=== PATIENT | female | born 1950 | race Caucasian/White ===

== ENCOUNTER 2023-04-25 10:15 | Observation (INO) ==
--- NOTE | 2023-04-17 14:50 | PAT Medication Instructions ---
Medication Instructions Date of Service April 17, 2023 Home Medications acidophilus 100 million cell-pectin, citrus 10 mg capsule (Probiotic Acidophilus-Pectin) 1 cap PO QAM aspirin 325 mg tablet 325 mg PO QAM calcium carbonate 500 mg calcium (1,250 mg) tablet (Oyster Shell Calcium 500) 500 mg PO QAM diltiazem HCl 240 mg capsule,extended release 24 hr 240 mg PO QAM ibuprofen 200 mg tablet (Advil) 800 mg PO Q6H PRN thyroid (pork) 120 mg tablet ([place] Thyroid) 120 mg PO QAM valsartan 80 mg tablet 80 mg PO QAM vit C 250 mg-vit E 90 mg-zinc 40 mg-copper 1 sd-ffdtio-rscres capsule (PreserVision AREDS-2) 1 tab PO BID ASK your surgeon for instructions ibuprofen 200 mg tablet (Advil) 800 mg PO Q6H PRN ASK your prescriber and surgeon aspirin 325 mg tablet 325 mg PO QAM STOP taking 2 weeks before surgery (or as soon as possible if surgery is within 2 weeks) vit C 250 mg-vit E 90 mg-zinc 40 mg-copper 1 [id number]-dxrqcx-cizxtq capsule (PreserVision AREDS-2) 1 tab PO BID DO NOT take the morning of surgery acidophilus 100 million cell-pectin, citrus 10 mg capsule (Probiotic Acidophilus-Pectin) 1 cap PO QAM calcium carbonate 500 mg calcium (1,250 mg) tablet (Oyster Shell Calcium 500) 500 mg PO QAM valsartan 80 mg tablet 80 mg PO QAM Take morning of surgery With a small sip of water, OTHERWISE NOTHING TO EAT OR DRINK AFTER MIDNIGHT: diltiazem HCl 240 mg capsule,extended release 24 hr 240 mg PO QAM thyroid (pork) 120 mg tablet ([place] Thyroid) 120 mg PO QAM Other Notes If you have any questions please call us at [phone] or [phone] or [phone] or [phone]
--- NOTE | 2023-04-19 10:26 | Anesthesiology Consultation ---
Date of Service April 19, 2023 Assessment & Plan (1) Encounter for pre-operative examination: - Infectious disease screening: Per assessment on 04/19/23: No known infectious disease contacts or current infectious disease symptoms. No noted recent Covid positive test result. - Outpatient joint assessment: Pt currently scheduled for inpatient pathway. If surgeon requests review for outpatient joint pathway, patient is an acceptable candidate for outpatient joint program from anesthesia standpoint pending surgeon's office assessment that patient is motivated, has good support and completes [facility] Program preop requirements. - S/P Right TKA (10/10/17): SAB at L3 (x1 attempt) + regional at [facility] - Preop EKG: performed 04/19/23 notes SR with PACs at 66bpm. LAD. NS intra- ventricular conduction block, Minimal voltage criteria for LVH, may be normal variant ([place] product). Cannot r/o anterior infarct, age undetermined. > Per computer interpretation, compared to 03/29/2016, PACs now present. Known hx of LBBB. Echo 10/2020- unremarkable. As of review 04/21/23, EKG still unconfirmed- anesthesiologist to review confirmed preop EKG DOS. Chart Review Chart Review: Acceptable Risk for Surgery (pending evaluation DOS) and Patient seen in Pre Admission Testing Teaching & Discussion Pre-Anesthesia Teaching/Discussion Notes: Instructed NPO after midnight before surgery,except medications with 15 cc of water. Medication instructions provided according to the PAT guidelines. History Surgery Operation Date: 04/25/23 12:30 Proposed Procedures p Left Total Knee Arthroplasty - Jayy Ley MD Height/Weight Height: 5 ft 7 in Weight: 88 kg Allergies Allergy/AdvReac Type Severity Reaction Status Date / Time No Known Allergies Allergy Verified 04/17/23 13:40 Medications Home Medications Medication Instructions Recorded Confirmed Last Taken acidophilus 100 million 1 cap PO QAM 04/17/23 04/17/23 Unknown cell-pectin, citrus 10 mg capsule (Probiotic Acidophilus-Pectin) aspirin 325 mg tablet 325 mg PO QAM 04/17/23 04/17/23 Unknown calcium carbonate 500 mg calcium 500 mg PO QAM 04/17/23 04/17/23 Unknown (1,250 mg) tablet (Oyster Shell Calcium 500) diltiazem HCl 240 mg 240 mg PO QAM 04/17/23 04/17/23 Unknown capsule,extended release 24 hr ibuprofen 200 mg tablet (Advil) 800 mg PO Q6H PRN Pain 04/17/23 04/17/23 Unknown thyroid (pork) 120 mg tablet 120 mg PO QAM 04/17/23 04/17/23 Unknown ([place] Thyroid) valsartan 80 mg tablet 80 mg PO QAM 04/17/23 04/17/23 Unknown vit C 250 mg-vit E 90 mg-zinc 40 1 tab PO BID 04/17/23 04/17/23 Unknown mg-copper 1 [id number]-thsfsj capsule (PreserVision AREDS-2) Past Medical History Medical History History of shingles 2019, residual left facial neuropathic pain Hard of hearing Left sided Osteoarthritis Macular degeneration Hypertension Left bundle branch block (LBBB) Dating back to at least 2016 ECG/stress test, subsequent Echo 10/2020 Left knee DJD Exercise / Class Metabolic Activity III < 4 Walking/Shop/Light housework Past Family History Family History Other No family history of adverse response to anesthesia Past Surgical History Surgical History History of bilateral tubal ligation History of wisdom tooth extraction History of thyroidectomy, 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 Past Anesthesia History No Hx of Anesthesia Complications and No Family Hx of Anesthesia Complications History of PONV No Hx of PONV and No Hx of Motion Sickness Social History Smoking Status: Former smoker Do You Dip or Chew Tobacco: No Smoking End Date: Quit 2019 Hx Alcohol Use: No Hx Substance Use: No substance use type: does not use Review of Systems Patient denies chest pain, shortness of breath, fever, chills, cough, wheezing, palpitations. Physical Exam Vital Signs VITALS BP 136/72 P 74 TEMP 98.0 SP02 96%RA RESP 18 PHYSICAL Decreased cervical extension range of motion. Full TMJ range of motion. TMD 3 finger breaths Mallampati Score 2 Dentition: intact Lungs: very mild lung bases crackles Cardiac: regular rate and rhythm, no murmurs noted Spine: normal Carotid arteries: negative bruit Extremities: no LE edema, left knee minimal scratch (no erythema, warmth, tenderness- advised to monitor and contact surgeon if not healed/any signs of infection prior to surgery- Catherine at surgeon's office made aware) Lab Results Anesthesia Preop Results Results Anesthesia Widget: WBC 5.83 K/ul (4.8-10.8) 04/19/23 Hgb 13.4 g/dl (12.0-16.0) 04/19/23 Hct 43.1 % (37.0-47.0) 04/19/23 Plt 275 K/uL (130-400) 04/19/23 Na 138 mmol/L (136-145) 04/19/23 K 4.4 mmol/L (3.5-5.1) 04/19/23 Cl 102 mmol/L (98-107) 04/19/23 CO2 28 mmol/L (21-32) 04/19/23 BUN 14 mg/dl (6-23) 04/19/23 Creat 0.97 mg/dl (0.6-1.2) 04/19/23 Glucose Level 87 mg/dl (70-99(Fasting)) 04/19/23 PT 11.2 Seconds (9.0-12.0) 04/19/23 PTT 24 Seconds (21-31) 04/19/23 INR 1.0 (0.9-1.1) 04/19/23 Blood Type B Positive 04/19/23 Antibody Screen NEGATIVE 04/19/23 Testing Electrocardiogram Date: 04/19/23 SR with PACs at 66bpm. LAD. NS intra-ventricular conduction block, Minimal voltage criteria for LVH, may be normal variant ([place] product). Cannot r/o anterior infarct, age undetermined. Per computer interpretation, compared to 03/29/2016, PACs now present. unconfirmed report. Echo done 10/2020 was unremarkable. Chest X-Ray Date: 04/19/23 FINDINGS: No pneumothorax. No pleural effusions. Old, healed left-sided rib fracture. The lungs are clear. There are calcifications within the aortic knob. A pectus excavatum deformity is again noted. This likely accounts for the prominence of the cardiac silhouette. No evidence for pulmonary edema. IMPRESSION: No acute process. Echocardiogram Date: 11/25/20 LVEF 55-59%. Mild concentric remodeling of the LV. There is normal wall motion of RV. No significant valvular disease.
[~2023-04-25 10:15] MED LIST: ACETAMINOPHEN 500 MG TAB PO SCH; BUPIVACAINE LIPOSOME/PF 266 MG, BUPIVACAINE/EPINEPHRINE 50 ML, SODIUM CHLORIDE 0.9% PF ... INFIL SCH; CeleBREX 200 MG CAP PO SCH; FAMOTIDINE 20 MG TAB PO SCH; LR 500ML BOLUS, THEN 15ML/HR IV SCH; LR 60ML/HR IV SCH; METOCLOPRAMIDE HCL 10 MG TABLET PO SCH; ROPIVACAINE 0.5% 5 MG/ML 30 ML VIAL ONE; Scopolamine 1 MG TDSY TD SCH; TRANEXAMIC ACID 1,000 MG **IV Intra-op IV SCH; ceFAZolin 2000MG 2,000 MG/15 ML SYR IV SCH; dexAMETHasone**PF** 10 MG/ML VIAL IV SCH
--- NOTE | 2023-04-25 10:35 | History & Physical Bridge Note ---
Date of Service April 25, 2023 History & Physical Bridge Note I have examined the patient, reviewed the History & Physical and in the interval since the performance of the History & Physical I have noted the following changes of clinical significance: no changes noted
[2023-04-25] MEDS ORDERED: ONDANSETRON INJ 2 MG/ML 2 ML VIAL IV PRN ×2 (11:19→15:56)
[2023-04-25] MEDS ORDERED: ePHEDrine sulfate 50 MG/ML AMP IV PRN (11:19)
[2023-04-25] MEDS ORDERED: ATROPINE SULFATE 0.1 MG/ML 10ML SYR IV PRN (11:19)
[2023-04-25] MEDS ORDERED: HYDROmorphone INJ 1 MG/ML SYRINGE IV PRN (11:19)
[2023-04-25] MEDS ORDERED: MIDAZOLAM HCL 1 MG/ML 2ML VIAL ONE (12:00)
[2023-04-25] MEDS ORDERED: BUPIVACAINE/EPINEPHRINE 0.25% 1:200,000 30 ML VIAL ONE (13:00)
[2023-04-25] MEDS ORDERED: SODIUM CHLORIDE 0.9% PF 50 ML VIAL ONE (13:00)
[2023-04-25] MEDS ORDERED: BUPIVACAINE LIPOSOME 1.3% 266 MG/20 ML VIAL ONE (13:01)
[2023-04-25] MEDS ORDERED: PROPOFOL IV EMULSION 10 MG/ML 20 ML VIAL IV ONE (13:16)
--- NOTE | 2023-04-25 14:43 | Operative Report ---
PG Post Operative Report Pre & Post Diagnosis Operation Date: 04/25/23 12:30 Pre-Op Diagnosis: Left Knee Degenerative Joint Disease Post-Op Diagnosis: Left Knee Degenerative Joint Disease I identified the patient and participated in the time-out.: Yes Procedure Operation Date: 04/25/23 12:30 Actual Procedures p Left Total Knee Arthroplasty(Left) - Jayy Ley MD Surgeon Jayy Ley MD Surveillance Officer Reyes Rodriguez PA-C Estimated Blood Loss 50 Findings Consistent with Post-Op Diagnosis Operative findings were advanced left knee DJD. She had extensive grade 4 htyj-mi-fjvj disease of the medial femoral condyle medial tibial plateau. Less severe changes elsewhere. Diffuse osteopenia. Osteophytes primarily posteriorly and medially. 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 She had a right knee replaced about 5 and half years ago and done well with this. She developed progressive pain and discomfort deformity to her left knee over the years. She failed conservative measures. She elects proceed with left total knee arthroplasty. Description of Procedure Operative implants consist of: 1 Biomet Vanguard size 65 left posterior stabilized femoral component. 2. Biomet size 67 tibial tray. 3. 12 mm posterior stabilized polyethylene insert. 4. 31 x 8 all poly patella. The patient was taken to the operating, identified, placed on the operating table in the supine position but all contact areas were properly padded. IV antibiotics tried by anesthesia team. Spinal anesthetic and adductor canal block had been divided in the holding area. A Jones catheter was placed in sterile fashion. A left thigh tent was then placed in the left lower extremities then prepped and draped in usual sterile fashion. The left leg was elevated exsanguinated with use of an Esmarch and tourniquet placed at 3 mmHg. An anterior approach the left knee was then performed through a longitudinal incision centered over the patella. Sharp dissection was carried through subcutaneous tissue down the extensor mechanism. A medial parapatellar arthrotomy incision was made. Some subperiosteal dissection was carried out medially. Fat pad was dissected from Neath patella tendon. The lateral patellofemoral ligament was released. Patella subluxated laterally knee was flexed. The osteophytes were taken off distal femur. The ACL and PCL were then released from the distal femur the tibia subluxated anteriorly. The external tibial alignment jig was then placed in the anterior face of the tibia and adjusted 14 mm medially. Proximal tibial cut was made remove about a millimeter bone from the medial side. Some osteophytes taken off medial and posterior medially. Tibia was then sized to a size 67. Attention drawn the femur. The distal femur examined the sharp drop with intramedullary canal was suction. A left 5 degree valgus cutting guide was placed. Distal femoral cutting block was pinned in place. This femoral cut was made to take an additional 3 mm of bone off distal femur. The femur was then sized to a size 65. We did downsize this almost an entire size. The AP cutting block was pinned parallel to the epicondylar axis which was 5 degrees of external rotation. The anterior cut, anterior chamfer, posterior cut, posterior chamfer cuts were made. The box cutting guide was placed in the just slight lateral and the box cut was made. The knee was flexed. The remnants of the medial and lateral menisci were excised. The osteophytes taken off the posterior aspect the femur. A trial femoral component was placed. The tibial tray was pinned in maximum external rotation and the drill and stem punch were used to create defect in proximal tibia for the tibial tray. The knee was then trialed and the 12 mm insert fit most appropriately. Attention drawn the patella. The patella was cleaned of all soft tissues. Patella thickness measured 22 mm in thickness was cut down to 13. Was sized to a size 31 patella. The lug holes for the 31 patella where drilled. The lateral osteophytes removed. Patella was misplaced and the knee was taken through range of motion and patella tracked nicely with no thumbs test. Attention drawn to placing the permanent components. Nupathe all trial components were removed. Bone plug was placed in the distal femur limit blood loss. Double batch [place] G cement was mixed. A Biomet Vanguard size 65 left posterior stabilized femoral component, a size 67 tibial tray, a 12 mm post stabilized polyethylene insert, and a 31 x 8 all poly patella then cemented in place. Knee was brought out in full extension till cement hardened. Final cement check was then performed. Pericapsular tissues were injected with total 100 cc of combination of 20 cc of Exparel, 30 cc normal saline, 50 cc of quarter percent Marcaine with epinephrine. Patient did receive 1 g tranexamic acid. Tourniquet then let down for final tourniquet time 50 minutes. Hemostasis assured use electrocautery. Extensor [place] closed with combination 1 PDS suture #1 Vicryl suture in a [id number] fashion. Extensor mechanism checked found to be intact and the subcutaneous tissues then closed with 2 Dexon suture in a buried erupted fashion. Skin was closed skin mati. Leg was then cleaned and dried and sterile dressing was Xeroform, 4 fours, sterile cast padding, Cm bandage were applied. Patient then transferred to the recovery room in stable condition. Patient tolerated the procedure well and there were no complications. Reyes Rodriguez, my physician application assistant, was present for the entire procedure. His assistance was essential and required for appropriate patient positioning, prepping and draping, surgical exposure, performing the technical details of the operation, placement the implants, closure of the wound, and placement of the sterile bandage. I attest to the content of the Intraoperative Record and any orders documented therein. Any exceptions are noted below.
--- NOTE | 2023-04-25 15:16 | XRay Report ---
XR knee LT 1 or 2V routine HISTORY: 72 years-old Female Surgical Post Op left knee arthroplasty COMPARISON: Radiographs 04/17/2023 TECHNIQUE: 2 views of the left knee FINDINGS: Total joint arthroplasty with patellar resurfacing. Anterior midline skin mati are noted along wit h expected postoperative soft tissue swelling and deep tissue air. No acute fracture, dislocation or unexpected opaque foreign body. IMPRESSION: Total joint arthroplasty with expected postoperative changes. ACT 112: Negative or not required by law. The above report was generated using voice recognition software. It may contain grammatical, syntax o r spelling errors. Electronically signed by: Kye Rosas M.D. 04/25/2023 3:15 PM
--- NOTE | 2023-04-25 15:17 | Anesthesiology Progress Note ---
Date of Service April 25, 2023 Anesthesia Post Procedure Vital Signs Vital Signs: Temp Pulse Pulse Resp BP BP Pulse Ox 04/25/23 15:10 86 17 129/62 95 04/25/23 15:00 36.4 C L 96 H 16 125/57 L 95 04/25/23 14:50 83 16 123/52 L 99 04/25/23 14:40 36.5 C 97 H 16 123/54 L 96 04/25/23 10:48 36.3 C L 77 16 167/73 H 95 O2 Del Method O2 Flow Rate 04/25/23 15:10 Nasal Cannula 2 04/25/23 15:00 Nasal Cannula 2 04/25/23 14:50 Oxymask 04/25/23 14:40 Oxymask 04/25/23 10:48 Room Air Transfer of Care Handoff Completed per policy Notes Mental Status: alert / awake / arousable Patient Amnestic to Procedure: Yes Nausea / Vomiting: adequately controlled Pain: adequately controlled Airway Patency, RR, SpO2: stable & adequate BP & HR: stable & adequate Hydration State: stable & adequate Neuraxial Anesthesia: was administered and sensory block is resolving Anesthetic Complications: no major complications apparent and Pt Satisfied with anesthetic care
[2023-04-25] MEDS ORDERED: NALOXONE HCL 0.4 MG/1 ML VIAL/CARP IV PRN (15:56)
[2023-04-25] MEDS ORDERED: METOCLOPRAMIDE HCL INJ 5 MG/ML 2 ML VIAL IV PRN (15:56)
[2023-04-25] MEDS ORDERED: ALUMINUM/MAGNESIUM SUSP 30 ML UDC PO PRN (15:56)
[2023-04-25] MEDS ORDERED: MAGNESIUM HYDROXIDE SUSP 30 ML UDC PO PRN (15:56)
[2023-04-25] MEDS ORDERED: traMADol HCL 50 MG TABLET PO PRN (15:56)
[2023-04-25] MEDS ORDERED: HYDROmorphone INJ 0.5 MG/0.5 ML SYR IV PRN (15:56)
[2023-04-25] MEDS ORDERED: bisacodyL 10 MG SUPP PR PRN (15:56)
[2023-04-25] MEDS: Scopolamine CHECK PATCH PLACEMENT SCH (17:05)
[2023-04-25] MEDS: KETOROLAC TROMETHAMINE 15 MG/ML VIAL IV SCH ×2 (17:55→23:34)
[2023-04-25] MEDS: SODIUM CHLORIDE 0.9% 1,000 ML IV SCH (17:57)
[2023-04-25] MEDS: ASCORBIC ACID 500 MG TAB PO SCH (18:44)
[2023-04-25] MEDS ORDERED: TRANEXAMIC ACID / 0.7% NACL 1,000 MG/100 ML BAG IV SCH (20:45)
[2023-04-25] MEDS ORDERED: SENNA 8.6 MG TAB PO SCH (21:00)
[2023-04-25] MEDS: ceFAZolin 2000MG 2,000 MG/15 ML SYR IV SCH (21:25)
[2023-04-25] MEDS: ACETAMINOPHEN 500 MG TAB PO SCH (21:28)
[2023-04-25] MEDS: CEROVITE ADV FORMULA TAB PO SCH (21:32)
[2023-04-25] MEDS: ASPIRIN 81 MG ECTAB PO SCH (21:32)
[2023-04-25] MEDS: DOCUSATE SODIUM 100 MG CAP PO SCH (21:35)
[2023-04-25] MEDS: SENNA 8.6 MG TAB PO SCH (21:35)
[2023-04-26] MEDS: Scopolamine CHECK PATCH PLACEMENT SCH ×2 (01:08→08:23)
[2023-04-26] MEDS: SODIUM CHLORIDE 0.9% 1,000 ML IV SCH (04:36)
[2023-04-26] MEDS: ceFAZolin 2000MG 2,000 MG/15 ML SYR IV SCH (04:41)
[2023-04-26] MEDS: KETOROLAC TROMETHAMINE 15 MG/ML VIAL IV SCH ×2 (04:41→10:09)
[2023-04-26] MEDS ORDERED: dexAMETHasone 10 MG in SYRINGE 0 ML IV SCH (08:00)
[2023-04-26] MEDS: CEROVITE ADV FORMULA TAB PO SCH (08:21)
[2023-04-26] MEDS: DOCUSATE SODIUM 100 MG CAP PO SCH (08:21)
[2023-04-26] MEDS: ASPIRIN 81 MG ECTAB PO SCH (08:21)
[2023-04-26] MEDS: ASCORBIC ACID 500 MG TAB PO SCH (08:22)
[2023-04-26] MEDS: SENNA 8.6 MG TAB PO SCH (08:22)
[2023-04-26] MEDS: ACETAMINOPHEN 500 MG TAB PO SCH (08:23)
[2023-04-26 08:35] LABS: Hematocrit (blood only) 35.9 % (37.0-47.0); Hemoglobin 11.6 g/dl (12.0-16.0); Mean Corpuscular Hemoglobin 26.7 pg (25.0-34.0); Mean Corpuscular Hgb Conc 32.3 g/dL (32.0-36.0); Mean Corpuscular Volume 82.5 fL (80.0-100.0); Mean Platelet Volume 9.4 fL (9.4-12.4); Platelet Count 285 K/uL (130-400); RDW Coefficient of Variation 14.5 % (11.5-14.5); RDW Standard Deviation 43.5 fL (36.4-46.3); Red Blood Count 4.35 M/uL (4.20-5.40)
[2023-04-26 08:54] LABS: BUN Creatinine Ratio 16.8 (10-20); Calcium 8.9 mg/dl (8.6-10.3); Creatinine Clr Calc Pharmacy 55.7 ml/min; Est GFR (African American) 60.9 ml/min; Est GFR (Non-African American) 52.6 ml/min; Potassium 4.2 mmol/L (3.5-5.1)
--- NOTE | 2023-04-26 08:56 | Orthopedic Progress Note ---
Date of Service April 26, 2023 Assessment & Plan (1) Status post left knee replacement: Overall, she is doing quite well today with good pain control to the left knee. She will work with physical therapy later on this morning to work on ambulation and range of motion exercises. She is currently on aspirin for DVT prophylaxis. She can be discharged home later today once evaluated by physical therapy. She will follow-up with Dr. Ley in 2 weeks for postoperative care. The patient was seen and examined myself Jayy Ley MD. Agree with above. The patient's pain is controlled well. She went through therapy well. She is neurologically intact. I will discharge to home and she will follow back with me in 2 to 3 weeks. She is going to outpatient therapy locally. Subjective . Avis was seen and evaluated this morning on rounds resting comfortably in bed in no apparent distress. She notes that her pain is well-controlled to her left knee. She notes that she has been up and ambulating with no issues. She denies any other concerns today. Review of Systems All systems reviewed & are unremarkable except as noted in HPI & below. Physical Exam . On physical examination of the left knee, dressings are in place, clean, dry, and intact. Her leg is out in full extension. She has active plantarflexion dorsiflexion to the left ankle. +2 DP and PT pulses. Less than 2-second capillary refill. Normal sensation. Neurovascular intact. Results & Data Results & Data Laboratory Results . Diagnostic Findings . Postoperative x-rays of the left knee show prosthesis to be in anatomical alignment without signs of fracture complication or loosening. PG Care Time/CCT Total # of Minutes Spent Total Time Spent with Patient: Total time spent is greater than 50% in coordination of care (as documented) at patient's floor/unit and/or counseling patient: Coding Level of Care Code 41685 Post Operative Follow-Up Diagnoses Status post left knee replacement Z96.652
--- NOTE | 2023-04-26 08:58 | Discharge Summary ---
Date of Service April 26, 2023 Principal Diagnosis Same as "Discharge Diagnosis" noted below under Discharge Instructions. Discharge Exam . On physical examination of the left knee, dressings are in place, clean, dry, and intact. Her leg is out in full extension. She has active plantarflexion dorsiflexion to the left ankle. +2 DP and PT pulses. Less than 2-second capillary refill. Normal sensation. Neurovascular intact. Discharge Data Procedures Performed Operation Date: 04/25/23 12:30 Actual Procedures p Left Total Knee Arthroplasty(Left) - Jayy Ley MD Ordered Studies 04/25/23 05:00 US - OR guided needle placemen Routine Hospital Course (1) Status post left knee replacement: On April 25, 2023 Avis arrived at [facility] and underwent a left total knee arthroplasty with no complications. She had a spinal anesthetic. Postoperatively, she was started on aspirin for DVT prophylaxis and transferred to the general orthopedic floor in stable condition. Her hospital course was uneventful. On postoperative day #1, her vital signs were stable and her pain was well-controlled. She participated well with physical therapy working on ambulation and range of motion exercises. She was discharged home in stable condition. She is going to follow-up with Dr. Ley in 2 weeks for postoperative care. PG Care Time/CCT Total # of Minutes Spent Total Time Spent with Patient: Total time spent is greater than 50% in coordination of care (as documented) at patient's floor/unit and/or counseling patient: Discharge Plan Discharge Items Patient Disposition: Home - Self-Care Reason For Visit: LEFT KNEE REPLACEMENT Discharge Diagnosis: Same Activity: Per Instructions section Non-emergency contact: Surgeon Call non-emergency contact if: your temperature is above 101.5, your wound has increased redness and your wound has increased drainage Follow-up/Referrals: Sandeep Dailey DO [Primary Care Provider] - Diet: Regular Addtl Attending Provider Instructions: ACTIVITY RECOMMENDATIONS: Physical Therapy: * You will go to physical therapy three times each week for four to six weeks after your surgery in order to regain your knee range of motion and to retrain your knee to work properly. * It is just as important to make sure you are getting your knee perfectly straight as it is to regain your knee bend. * Taking a pain pill an hour before therapy can help you have a more productive and comfortable therapy session. Home Exercise: * You were shown a series of exercises (heel props, heel slides, etc.) in the hospital. Do these exercises three to four times each day including the exercises you were shown in physical therapy. Walking: * Get up and walk several times each day. For the first four weeks, try not to stand or walk for more than one hour at a time. If you do stand or walk for more than one hour, you will not hurt anything, but your knee and leg will likely swell. * As you feel comfortable, you may change from the walker or crutches to a cane and then to independent walking. MEDICATIONS: New Medicine: * You will likely be taking one or more of these medications: 1. Oxycodone - A quick and shorter-acting pain medication. Take one to two tablets every six hours to lessen your pain. 2. Iron Sulfate - Take two times each day for the month after surgery to help you replace the blood lost during surgery. 3. Aspirin - Thins your blood to lessen the chance of forming a blood clot. * The most common side effects of pain medicine and iron are nausea and constipation. If nausea or constipation is too much of a problem or if you have any questions about your new medicines or doses, call [facility] at . We will try to help you manage these issues. "VERY IMPORTANT TO READ AND REVIEW" Pain: * The immediate post-operative period after knee replacement surgery is often quite painful. * You are given a prescription for pain medicine. You should take it, as directed, when you need it, especially before physical therapy and before going to bed. Pain that interferes with sleep is very common and can last several months. * You will likely need pain medicine for the first four to six weeks. It will not stop all of the pain. The pain will lessen and as you feel better, you may change to milder pain medicine such as Tylenol. * The most common side effects of pain medicine are nausea and constipation, so don't take more than you need. SPECIAL CARE INSTRUCTIONS: TEDs/Elastic Stockings: * The white elastic stockings help limit swelling and prevent blood clots from forming in your legs. The more you wear them, the more they work. * Wear them for six weeks after knee replacement surgery and four weeks after partial knee replacement. Incision Site Care: * Remove dressing postoperative day 2 and then shower. Keep direct shower pressure off the incision site. * After showering, cover mati with dry gauze and change daily or more frequently if the dressing is getting saturated with drainage. * Use the AMARA stockings to hold dressing in place. DO NOT apply tape on the skin. * May completely stop using bandage if wound is dry and no drainage * [place] are removed between 2 and 3 weeks post-op. If your follow-up appointment is made before 2 weeks, please have your appointment re- scheduled. It is too early to remove the mati. Prevention of Infection: * Take antibiotics one hour before any dental cleaning, dental work, urological procedure, gastrointestinal procedure or any invasive surgery in order to prevent your new joint from getting infected. * You may get the antibiotics from the doctor performing the procedure or you may call our office at [phone] before and we will call in a prescription to the pharmacy of your choice. Things to Watch For: * Drainage from the incision site that occurs more than one week after your surgery. * Severely increased knee/leg pain or swelling. * Increased redness at the incision site. * Fever above 102 degrees Fahrenheit. * Unusual chest pain or shortness of breath. * Unusual pain or burning with urination. Call [facility] at [phone] with any of the above problems or if you have any questions about your medicines or recovery. FOLLOW UP VISIT: Make an appointment to see your doctor for approximately two weeks after surgery for a progress check and staple removal by calling the office at [phone]. Pending Studies at Discharge: No Stand-Alone Forms: [facility], Smoking Cessation Medications and DC Order Prescriptions: Continued tramadol 50 mg tablet 50 - 100 mg PO Q6 PRN (Reason: pain) Qty: 40 0RF Rx Instructions: Take as needed for pain ondansetron 4 mg tablet,disintegrating 4 mg PO Q8 PRN (Reason: nausea) Qty: 20 1RF Rx Instructions: Take as needed for nausea ketorolac 10 mg tablet 10 mg PO Q6 5 Days Qty: 20 0RF Rx Instructions: Take 4 times per day with food for 5 days to lessen pain and swelling. sennosides [Senokot] 8.6 mg tablet 8.6 mg PO BID 14 Days Qty: 28 0RF Rx Instructions: Take two times a day to prevent/treat constipation acetaminophen [Tylenol Extra Strength] 500 mg tablet 1,000 mg PO TID 30 Days Qty: 180 0RF Rx Instructions: Take 3 times per day to lessen pain. aspirin [Rahul Low Dose Aspirin] 81 mg tablet,delayed release (DR/EC) 81 mg PO BID 45 Days Qty: 90 0RF Rx Instructions: Take to prevent blood clots. diltiazem HCl 240 mg Capsule,Extended Release 24hr 240 mg PO QAM valsartan 80 mg Tablet 80 mg PO QAM calcium carbonate [Oyster Shell Calcium 500] 500 mg calcium (1,250 mg) Tablet 500 mg PO QAM thyroid (pork) [[place] Thyroid] 120 mg Tablet 120 mg PO QAM acidophilus-pectin, citrus [Probiotic Acidophilus-Pectin] 100 million cell-10 mg Capsule 1 cap PO QAM PreserVision AREDS-2 250-90-40-1 mg Capsule 1 tab PO BID Discontinued aspirin 325 mg Tablet 81 mg PO QAM ibuprofen [Advil] 200 mg Tablet 800 mg PO Q6H PRN (Reason: Pain) Discharge Orders: Discharge Order (Routine); Ordered 04/26/23 Ordered By: Kye Oconnell Admission Data Admit Date/Time: 04/25/23 14:41 Attending Provider: Jayy Ley Admit Provider: Jayy Ley Primary Care Provider: Sandeep Dailey
[2023-04-26] MEDS ORDERED: ARMOUR THYROID 30 MG TAB PO SCH (09:00)
[2023-04-26] MEDS ORDERED: SACCHAROMYCES BOULARDII 250 MG CAP PO SCH (09:00)
[2023-04-26] MEDS ORDERED: MULTIVITAMIN TAB PO SCH (09:00)
[2023-04-26] MEDS ORDERED: dilTIAZem HCL 240 MG CAPCR PO SCH (09:00)
[2023-04-26] MEDS ORDERED: CALCIUM CARBONATE 1250MG TAB PO SCH (09:00)
[2023-04-26] MEDS ORDERED: VALSARTAN 80 MG TAB PO SCH (09:00)
== END 2023-04-26 11:09 | disposition home or self-care (01) ==
LOC: PACUINP 10:15 → ASU 10:15 → 3N 16:32